=== PATIENT | male | born 1960 | race Hispanic/Latino ===

== ENCOUNTER 2017-12-25 12:25 | Emergency (ER) ==
[~2017-12-25] VITALS: Ht 177.8 cm; Wt 105.8 kg
[2017-12-25] MEDS ORDERED: BUSPIRONE HCL10 MG PO (13:15)
[2017-12-25] MEDS ORDERED: Flonase (13:15)
[2017-12-25] MEDS ORDERED: ATORVASTATIN CA20 MG PO (13:15)
[2017-12-25] MEDS ORDERED: GABAPENTIN300 MG PO (13:15)
[2017-12-25] MEDS ORDERED: CLOTRIMAZOLE15 GM TOP (13:15)
[2017-12-25] MEDS ORDERED: NAPROXEN250 MG PO (13:19)
[2017-12-25] MEDS ORDERED: OMEPRAZOLE40 MG PO (13:19)
[2017-12-25] MEDS ORDERED: NOVOLOG MI100 UNIT/1 SQ (13:19)
[2017-12-25] MEDS ORDERED: PRINZIDE PO (13:19)
[2017-12-25] MEDS ORDERED: LEVEMIR100 UNIT/1 SQ (13:19)
[2017-12-25] MEDS ORDERED: XARELTO20 MG (13:19)
[2017-12-25] MEDS ORDERED: JANUMET 50-1,01 EACH PO (13:19)
[2017-12-25] MEDS ORDERED: ZAFIRLUKAST20 MG PO (13:19)
[2017-12-25] MEDS ORDERED: KETOCONAZOLE15 GM TOP (13:19)
== END 2017-12-25 12:48 | disposition left against medical advice (07) ==
LOC: FSED 12:25
DX: R50.9 Fever, unspecified (principal)

== ENCOUNTER → 2023-09-27 | Outpatient (REF) | payer OTHER ==
[~2023-09-27] MED LIST: ATORVASTATIN CA20 MG PO; BUSPIRONE HCL10 MG PO; CLOTRIMAZOLE15 GM TOP; Flonase; GABAPENTIN300 MG PO; JANUMET 50-1,01 EACH PO; KETOCONAZOLE15 GM TOP; LEVEMIR100 UNIT/1 SQ; NAPROXEN250 MG PO; NOVOLOG MI100 UNIT/1 SQ; OMEPRAZOLE40 MG PO; PRINZIDE PO; XARELTO20 MG; ZAFIRLUKAST20 MG PO
== END ==
LOC: US 07:03
PROVIDERS: ATTEND Nurse Practitioner
DX: R19.7 Diarrhea, unspecified (principal); R14.2 Eructation
CPT/HCPCS: 76700; 76856